=== PATIENT | male | born 1930 | race Caucasian/White ===

== ENCOUNTER 2017-07-13 15:00 | Emergency (ER) | payer MEDICARE, BC ==
[2005-05-15 07:00] VITALS: BP 112/71
[~2017-07-13] VITALS: Ht 175.3 cm; Wt 45.5 kg
[2017-07-13 15:02] VITALS: TEMP 97.9
[2017-07-13] MEDS ORDERED: HALCION0.25 MG PO (15:35)
[2017-07-13] MEDS ORDERED: ZOCOR 40MG40 MG PO (15:35)
[2017-07-13] MEDS ORDERED: NORVASC 5MG5 MG/TAB PO (15:36)
[2017-07-13] MEDS ORDERED: BYSTOLIC5 MG PO (15:36)
[2017-07-13 15:58] LABS: BASO % 0.3 % (0.0-2.0); EOS # 0.1 (0.0-0.7); EOS % 0.9 % (0-4.0); GRAN # 7.1 (1.4-6.5); GRAN % 77.2 % (42.2-75.2); HEMOGLOBIN 14.6 g/dl (13.5-18.0); LYMPH # 1.2 (1.2-3.4); LYMPH % 13.1 % (20.0-51.0); MEAN CELL VOLUME 101 fl (80.0-100.0); MEAN CORPUSCULAR HEMOGLOBIN 33 pg (27.0-31.0); MEAN CORPUSCULAR HGB CONC 32 g/dl (33.0-37.0); MEAN PLATELET VOLUME 12.8 fl (7.4-10.4); MONO # 0.8 (0.1-0.6); MONO % 8.1 % (1.7-9.3); PLATELET COUNT 132 K/mm3 (130-400); RED BLOOD COUNT 4.47 M/mm3 (4.20-5.60); REDCELL DISTRIBUTION WIDTH-CV 12.4 % (11.5-14.5)
[2017-07-13 16:09] LABS: ALANINE AMINOTRANSFERASE 40 U/L (21-72); ALBUMIN 4.4 gm/dL (3.5-5.0); ALKALINE PHOSPHATASE 99 U/L (50-136); ANION GAP 11 mmol/L (7-16); AST,SGOT 28 U/L (15-37); BILIRUBIN,TOTAL 0.4 mg/dL (0.0-1.0); BLOOD UREA NITROGEN 35 mg/dL (9-20); CALCIUM 9.7 mg/dL (8.4-10.2); CARBON DIOXIDE 27 mmol/L (22-30); CHLORIDE 106 mmol/L (98-107); CREATININE, serum 0.91 mg/dL (0.66-1.25); GLUCOSE 164 mg/dL (74-106); SODIUM 144 mmol/L (137-145); TOTAL PROTEIN 7.5 gm/dL (6.4-8.2)
[2017-07-13 16:09] LABS: COLLECTION METHOD CLEAN CATCH
[2017-07-13 16:15] LABS: C-REACTIVE PROTEIN < 0.5 mg/dL (0.0-0.9)
[2017-07-13 16:24] LABS: MUCOUS Present /lpf; PH 5 (5-8); SQUAMOUS EPITHELIAL None Seen /hpf; URINE APPEARANCE Hazy; URINE BACTERIA None Seen /hpf; URINE BILIRUBIN Negative (NEGATIVE); URINE BLOOD 1+ (NEGATIVE); URINE COLOR Yellow; URINE GLUCOSE 1+ (NEGATIVE); URINE KETONE Trace (NEGATIVE); URINE LEUKOCYTE ESTERASE Negative (NEGATIVE); URINE NITRATE Negative (NEGATIVE); URINE PROTEIN(semi-quant) 2+ (NEGATIVE)
[2017-07-13] MEDS ORDERED: NORCO 325 MG-51 TAB PO (17:26)
[2017-07-13 18:10] VITALS: BP 144/85; PULSE 85
== END 2017-07-13 18:13 | disposition home or self-care (01) ==
LOC: COL.ER 15:00
PROVIDERS: Emergency Medicine
DX: M48.56XA Collapsed vertebra, not elsewhere classified, lumbar region, initial encounter for fracture (principal); I10 Essential (primary) hypertension; I71.4 Abdominal aortic aneurysm, without rupture; F17.210 Nicotine dependence, cigarettes, uncomplicated; Z98.890 Other specified postprocedural states; X58.XXXA Exposure to other specified factors, initial encounter
CPT/HCPCS: J7030; J7050; Q9967

== ENCOUNTER 2018-07-20 00:22 | Emergency (ER) | payer MEDICARE, BC ==
[2005-05-15 07:00] VITALS: BP 112/71
[~2018-07-20] VITALS: Wt 45.0 kg
[~2018-07-20 00:22] MED LIST: BYSTOLIC5 MG PO; HALCION0.25 MG PO; NORCO 325 MG-51 TAB PO; NORVASC 5MG5 MG/TAB PO; ZOCOR 40MG40 MG PO
[2018-07-20 00:32] VITALS: TEMP 92.7
[2018-07-20 00:43] LABS: HEMOGLOBIN 15.3 g/dl (13.5-18.0); MEAN CELL VOLUME 117 fl (80.0-100.0); MEAN CORPUSCULAR HEMOGLOBIN 34 pg (27.0-31.0); MEAN CORPUSCULAR HGB CONC 29 g/dl (33.0-37.0); MEAN PLATELET VOLUME 12.7 fl (7.4-10.4); PLATELET COUNT 77 K/mm3 (130-400); RED BLOOD COUNT 4.47 M/mm3 (4.20-5.60); REDCELL DISTRIBUTION WIDTH-CV 12.6 % (11.5-14.5)
[2018-07-20 00:44] LABS: HEMATOCRIT 52.1 % (42.0-52.0)
[2018-07-20 00:50] LABS: INR 1.4 (0.8-3.0); PROTHROMBIN TIME 16.2 SECONDS (9.7-12.8)
[2018-07-20 00:51] LABS: ALBUMIN 3.9 gm/dL (3.5-5.0); BILIRUBIN,TOTAL 1.6 mg/dL (0.0-1.0); CALCIUM 8.8 mg/dL (8.4-10.2); CREATININE, serum 2.1 mg/dL (0.66-1.25); TOTAL PROTEIN 6.5 gm/dL (6.4-8.2)
[2018-07-20 00:54] LABS: ARTERIAL BLD GAS O2 SATURATION 96.9 % (92-100); ARTERIAL BLD GAS TCO2 CT 5.7; ARTERIAL BLOOD GAS BASE EXCESS -26.8 (-2-2); ARTERIAL BLOOD GAS PCO2 24.9 mmHg (35-45)
[2018-07-20 00:55] LABS: ARTERIAL BLOOD GAS PO2 154.3 mmHg (80-100); ARTERIAL BLOOD GAS pH 6.92 (7.35-7.45)
[2018-07-20 01:05] LABS: TROPONIN-I 1.41 ng/mL (0.000-0.034)
[2018-07-20 01:29] LABS: BAND 5 % (0-10); LYMPHOCYTE 9 % (20.0-51.0); NEUTROPHILS 81 % (42.0-75.2); PLATELET ESTIMATE DECREASED (NORMAL)
[2018-07-20 01:31] LABS: ANISOCYTOSIS 1+; HYPOCHROMIA 1+; POLYCHROMASIA 1+
[2018-07-20 02:57] VITALS: BP 0/0; PULSE 0
== END 2018-07-20 02:57 | disposition expired ==
LOC: COL.ER 00:22
PROVIDERS: Emergency Medicine; Nurse Practitioner
DX: E87.5 Hyperkalemia (principal); I46.9 Cardiac arrest, cause unspecified; R50.9 Fever, unspecified; I47.2 Ventricular tachycardia; J44.9 Chronic obstructive pulmonary disease, unspecified; F17.210 Nicotine dependence, cigarettes, uncomplicated
CPT/HCPCS: J0171; J0282; J0610; J1265; J2270; J2704; J7030; J7060